=== PATIENT | male | born 1990 ===

== ENCOUNTER 2019-09-30 21:49 | Emergency (ER) | payer BC, OTHER ==
--- NOTE | 2019-09-30 22:31 | EDM.PDOC ---
ED HPI GENERAL MEDICAL PROBLEM - General Chief Complaint: Skin Complaint Stated Complaint: RASH ON HANDS AND FEET Time Seen by Provider: 09/30/19 22:14 - History of Present Illness INITIAL COMMENTS - FREE TEXT/NARRATIVE: HISTORY AND PHYSICAL: History of present illness: The patient is a 29-year-old male who is unsure of his last tetanus shot and has no chronic medical problems and presents with a one-month history of a rash on bilateral palms and feet which seems to not be improving. He says that the rash came up as flat macules on his palms and soles and then proceeded to start weeping and desquamated and he has been using [id number] hydrocortisone and it is not improving. He has no systemic complaints of fever chills upper respiratory symptoms nausea or vomiting and denies any rashes elsewhere on his body. More specifically he denies STDs and says he has been tested in the past and they have always been negative. He denies any genital lesions sores testicular pain or swelling and no penile discharge. He said the reason why he came in tonight versus any other day is because it is more painful and areas on his hands seem to be weeping. He has no weakness numbness or tingling in his extremities and is otherwise doing his normal activities. The patient also says he has never had any oral lesions sores or discomfort other at the onset or throughout the duration of this rash. When I asked the patient if he has ever had these lesions or rash for he says he may have had them several times in the past when he was living in [place] because of the heat and he thought it was just due to his sweat glands but it never quite look like what he is experiencing now. He says that at the onset of the rash lesions were very sensitive and tender. He did not have any associated URI symptoms or oral lesions and he has never had a genital lesion. Review of systems: As per history of present illness and below otherwise all systems reviewed and negative. Past medical history: As per history of present illness and as reviewed below otherwise noncontributory. Surgical history: As per history of present illness and as reviewed below otherwise noncontributory. Social history: No reported history of drug or alcohol abuse. Family history: As per history of present illness and as reviewed below otherwise noncontributory. Physical exam: General: Well-developed well-nourished mildly overweight man who is nontoxic and vital signs are noted by me. He speaking clearly and easily in the ED and is in no distress. HEENT: Atraumatic, normocephalic, pupils reactive, negative for conjunctival pallor or scleral icterus, mucous membranes moist, throat clear, neck supple, nontender, trachea midline. There are no oropharyngeal lesions and there is no oropharyngeal or facial swelling. Lungs: Clear to auscultation, breath sounds equal bilaterally, chest nontender. Heart: S1S2, regular rhythm no overt murmurs Abdomen: Soft, nondistended, nontender. NABS Pelvis: Deferred Genitourinary: Deferred. Rectal: Deferred. Extremities: Atraumatic, full range of motion of all extremities, there is no pedal edema or leg asymmetry. Please see below skin exam for hands and feet Neurovascular unremarkable. Neuro: Awake, alert, oriented. Cranial nerves II through XII unremarkable. Cerebellum unremarkable. Motor and sensory unremarkable throughout. Exam nonfocal. Skin: The head neck chest abdomen and trunk are without any rashes or lesions and turgor is normal and on the palms of the hands and in the webspaces there are multiple macules seen of varying ages some of them are weeping some are desquamating and there is some pinkish erythema without any gross swelling or drainage. The compartments are soft and the patient can range of motion at the hands and there is no extension of these lesions to the dorsal aspect of the hand or beyond the wrist flexure bilaterally. On the feet there are similar lesions seen macules in variety of ages some are weeping some are desquamating and there is more erythema down here which is ill-defined and some mild soft tissue swelling but no crepitus defects or deformities. Again this rash does not extend from the foot upwards and it is only confined to the soles of the feet more on the arch surfaces and in between the toes Diagnostics: CBC CMP UA with reflex urine for gonorrhea and Chlamydia, RPR/syphilis testing Therapeutics: Bicillin LA The patient is aware that this may be strange variant of hand foot mouth disease but the duration speaks against that. I did have concerns about secondary syphilis although his history does not support this and he is aware that testing has been sent off and I will give him a dose of Bicillin LA here to cover him. He is also aware that I'm concerned about secondary infection of these lesions and I will send him home on an antibiotic for cellulitis. He knows that his testing for HIV will need to be done in the clinic and that his gonorrhea and chlamydia testing will take several days for the results to appear. He is not currently having any symptoms and is not concerned about active STD on this ED visit. He is aware of my concerns about further treatment of this rash with respect to pending test results and the need to follow-up in our clinic with either primary care or with Dr. Cuevas this week. Impression: Bilateral hand and foot cellulitis, rule out secondary syphilis Definitive disposition and diagnosis as appropriate pending reevaluation and review of above. Bilateral Feet Pain Score (Numeric/FACES): 8 - Related Data Allergies Allergy/AdvReac Type Severity Reaction Status Date / Time No Known Allergies Allergy Verified 09/30/19 22:09 Home Meds: Home Meds . [No Known Home Meds] 09/30/19 [History] Past Medical History - Past Health History Medical/Surgical History: Denies Medical/Surgical History - Infectious Disease History Infectious Disease History: Reports: None Social & Family History - Family History Family Medical History: Noncontributory - Tobacco Use Smoking Status *Q: Never Smoker Second Hand Smoke Exposure: No - Caffeine Use Caffeine Use: Reports: None - Recreational Drug Use Recreational Drug Use: No ED ROS GENERAL - Review of Systems Review Of Systems: Comprehensive ROS is negative, except as noted in HPI. ED EXAM, SKIN/RASH Exam: See Below (see dictation) Course - Vital Signs Last Recorded V/S: Last Vital Signs Temp 36.4 C 09/30/19 22:09 Pulse 103 H 09/30/19 22:09 Resp 16 09/30/19 22:09 BP 151/82 H 09/30/19 22:09 Pulse Ox 98 09/30/19 22:09 - Orders/Labs/Meds Orders: Active Orders 24 hr Category Date Time Status CHLAMYDIA AND GONORRHEA BY TMA Stat Lab 09/30/19 22:40 Received RPR (SYPHILIS SERO) W/ RFLX [REF] Routine Lab 09/30/19 22:41 Received Penicillin G Benzathine [Bicillin L-A] Med 09/30/19 23:27 Once 2.4 millunits IM ONETIME ONE Medication Orders Penicillin G Benzathine (Bicillin L-A) 2.4 millunits IM ONETIME ONE Stop: 09/30/19 23:28 Labs: Laboratory Tests 09/30/19 09/30/19 09/30/19 Range/Units 22:40 22:41 22:41 WBC 12.11 H (4.0-11.0) K/uL RBC 5.18 (4.50-5.90) M/uL Hgb 14.8 (13.0-17.0) g/dL Hct 42.1 (38.0-50.0) % MCV 81.3 (80.0-98.0) fL MCH 28.6 (27.0-32.0) pg MCHC 35.2 (31.0-37.0) g/dL RDW Std Deviation 39.2 (28.0-62.0) fl RDW Coeff of Samir 13 (11.0-15.0) % Plt Count 190 (150-400) K/uL MPV 10.90 (7.40-12.00) fL Neut % (Auto) 54.8 (48.0-80.0) % Lymph % (Auto) 37.7 (16.0-40.0) % Schleicher % (Auto) 5.5 (0.0-15.0) % Eos % (Auto) 1.8 (0.0-7.0) % Baso % (Auto) 0.2 (0.0-1.5) % Neut # (Auto) 6.7 H (1.4-5.7) K/uL Lymph # (Auto) 4.6 H (0.6-2.4) K/uL Schleicher # (Auto) 0.7 (0.0-0.8) K/uL Eos # (Auto) 0.2 (0.0-0.7) K/uL Baso # (Auto) 0.0 (0.0-0.1) K/uL Nucleated RBC % 0.0 /100WBC Nucleated RBCs # 0 K/uL Sodium 139 (136-148) mmol/L Potassium 3.7 (3.5-5.1) mmol/L Chloride 105 (98-107) mmol/L Carbon Dioxide 23.5 (21.0-32.0) mmol/L BUN 20 H (7.0-18.0) mg/dL Creatinine 1.2 (0.8-1.3) mg/dL Est Cr Clr Drug Dosing 95.47 mL/min Estimated GFR (MDRD) > 60.0 ml/min Glucose 122 H (74-106) mg/dL Calcium 8.8 (8.5-10.1) mg/dL Total Bilirubin 0.3 (0.2-1.0) mg/dL AST 23 (15-37) IU/L ALT 50 (14-63) IU/L Alkaline Phosphatase 65 (46-116) U/L Total Protein 8.0 (6.4-8.2) g/dL Albumin 3.9 (3.4-5.0) g/dL Globulin 4.1 H (2.6-4.0) g/dL Albumin/Globulin Ratio 1.0 (0.9-1.6) Urine Color YELLOW Urine Appearance CLEAR Urine pH 6.0 (5.0-8.0) Ur Specific Cl[place] >= 1.030 (1.001-1.035) Urine Protein NEGATIVE (NEGATIVE) mg/dL Urine Glucose (UA) NEGATIVE (NEGATIVE) mg/dL Urine Ketones NEGATIVE (NEGATIVE) mg/dL Urine Occult Blood TRACE-INTACT H (NEGATIVE) Urine Nitrite NEGATIVE (NEGATIVE) Urine Bilirubin NEGATIVE (NEGATIVE) Urine Urobilinogen 0.2 (<2.0) EU/dL Ur Leukocyte Esterase NEGATIVE (NEGATIVE) Urine RBC 0-1 (0-2/HPF) Urine WBC 0-1 (0-5/HPF) Ur Epithelial Cells RARE (NONE-FEW) Urine Bacteria RARE (NEGATIVE) Meds: Medications Generic Name Dose Route Start Last Admin Trade Name Freq PRN Reason Stop Dose Admin Penicillin G Benzathine 2.4 millunits 09/30/19 23:27 Bicillin L-A IM 09/30/19 23:28 ONETIME ONE Departure - Departure Time of Disposition: 23:28 Disposition: Home, Self-Care 01 Condition: Good Clinical Impression: Cellulitis Qualifiers: Site of cellulitis: extremity Laterality: unspecified laterality - Discharge Information Referrals: PCP,None [Primary Care Provider] - Forms: ED Department Discharge Additional Instructions: The following information is given to patients seen in the emergency department who are being discharged to home. This information is to outline your options for follow-up care. We provide all patients seen in our emergency department with a follow-up referral. The need for follow-up, as well as the timing and circumstances, are variable depending upon the specifics of your emergency department visit. If you don't have a primary care physician on staff, we will provide you with a referral. We always advise you to contact your personal physician following an emergency department visit to inform them of the circumstance of the visit and for follow-up with them and/or the need for any referrals to a consulting specialist. The emergency department will also refer you to a specialist when appropriate. This referral assures that you have the opportunity for followup care with a specialist. All of these measure are taken in an effort to provide you with optimal care, which includes your followup. Under all circumstances we always encourage you to contact your private physician who remains a resource for coordinating your care. When calling for followup care, please make the office aware that this follow-up is from your recent emergency room visit. If for any reason you are refused follow-up, please contact the [facility] emergency department at and ask to speak to the emergency department charge nurse. [facility] Specialty Care-Urology [address] [place] [id number] [facility] Primary care- Internal Medicine and Family [address] [id number] Please call the clinic either primary care or urology and schedule follow-up of this problem. You need to take the antibiotics as directed for the infection of the rash on her hands and feet and try to keep your feet especially open to air as much as possible. Cleanse all areas with mild soap and water pat dry and do not continue to apply hydrocortisone. Use [id number] Tylenol or ibuprofen for pain management. He received antibiotics here but may need more antibiotics going forward pending the testing results. Please also investigate getting HIV testing either at [facility] or with the provider in the clinic here. Return to ER as needed and as discussed - My Orders Last 24 Hours: My Active Orders 09/30/19 22:40 CHLAMYDIA AND GONORRHEA BY TMA Stat 09/30/19 22:41 RPR (SYPHILIS SERO) W/ RFLX [REF] Routine 09/30/19 23:27 Penicillin G Benzathine [Bicillin L-A] 2.4 millunits IM ONETIME ONE - Assessment/Plan Last 24 Hours: My Active Orders 09/30/19 22:40 CHLAMYDIA AND GONORRHEA BY TMA Stat 09/30/19 22:41 RPR (SYPHILIS SERO) W/ RFLX [REF] Routine 09/30/19 23:27 Penicillin G Benzathine [Bicillin L-A] 2.4 millunits IM ONETIME ONE
[2019-09-30 23:06] LABS: BLOOD UREA NITROGEN,BUN 20 mg/dL (7.0-18.0); CARBON DIOXIDE,CO2 23.5 mmol/L (21.0-32.0); CHLORIDE,CL 105 mmol/L (98-107); GLUCOSE RANDOM 122 mg/dL (74-106); POTASSIUM,K 3.7 mmol/L (3.5-5.1); SODIUM,NA 139 mmol/L (136-148)
[2019-09-30] MEDS ORDERED: Penicillin G Benzathine 1,200,000 Units/2 ML Syringe IM ONE (23:27)
== END 2019-10-01 | disposition home or self-care (01) ==
LOC: MW.ED 21:49
DX: L03.113 Cellulitis of right upper limb (principal); L03.114 Cellulitis of left upper limb; L03.115 Cellulitis of right lower limb; L03.116 Cellulitis of left lower limb
CPT/HCPCS: 36415; 80053; 81001; 85025; 86592; 86780; 87491; 87591; 96372; 99283; J0561

== ENCOUNTER 2022-08-27 13:46 | Emergency (ER) | payer BC ==
[2022-08-27] MEDS ORDERED: Sodium Chloride 0.9% 1,000 ML IV ONE (14:41)
[2022-08-27] MEDS ORDERED: Prochlorperazine 10 MG in Sodium Chloride 0.9% 50 ML IV ONE (14:41)
[2022-08-27] MEDS ORDERED: diphenhydrAMINE 50 MG/ML SDV IVPUSH ONE (14:41)
[2022-08-27] MEDS ORDERED: Ketorolac 30 MG/ML SDV IVPUSH ONE (14:41)
[2022-08-27] MEDS ORDERED: Prochlorperazine 10 MG/2 ML SDV IVPUSH ONE (15:30)
== END 2022-08-27 17:09 | disposition home or self-care (01) ==
LOC: MW.ED 13:46
DX: R51.9 Headache, unspecified (principal); Z91.048 Other nonmedicinal substance allergy status
CPT/HCPCS: 96361; 96374; 96375; 99283; J0780; J1200; J1885; J7030